=== PATIENT | female | born 1980 ===

== ENCOUNTER 2016-11-23 18:54 | Emergency (ER) | payer OTHER ==
[2016-11-23 18:54] VITALS: BMI 42.5
[2016-11-23 19:05] VITALS: TEMP 97.9
--- NOTE | 2016-11-23 20:39 | C.PDOC ---
Time Seen by Provider: 11/23/16 19:46 Chief Complaint (Nursing): Lower Extremity Problem/Injury Past Medical History Vital Signs: Last Vital Signs Temp 97.9 F 11/23/16 19:01 Pulse 95 H 11/23/16 19:01 Resp 17 11/23/16 19:01 BP 128/82 11/23/16 19:01 Pulse Ox 97 11/23/16 19:01 - Medical History PMH: Anemia, Diabetes, HTN, Hyperthyroidism Denies: HIV, Chronic Kidney Disease Surgical History: Cholecystectomy - [facility] Procedures INJECT/INFUSE ELECTROLYT (07/24/14) INJECT/INFUSE NEC (07/24/14) Family History: States: Unknown Family Hx - Social History Hx Tobacco Use: Yes Hx Alcohol Use: No Hx Substance Use: No - Immunization History Hx Tetanus Toxoid Vaccination: No Hx Influenza Vaccination: No Hx Pneumococcal Vaccination: No ED Course And Treatment O2 Sat by Pulse Oximetry: 97
--- NOTE | 2016-11-23 20:39 | C.PDOC ---
History Of Present Illness 36 yr old female presents to the ER stating last night while walking on the street she sustained a twisting injury. Patient states she woke up this morning and noticed the pain and swelling had worsened. Pain is worse with movement. Patient denies change in sensation, trauma, back pain, leg pain, weakness or numbness. Time Seen by Provider: 11/23/16 19:46 Chief Complaint (Nursing): Lower Extremity Problem/Injury History Per: Patient History/Exam Limitations: no limitations Onset/Duration Of Symptoms: Days (1) Current Symptoms Are (Timing): Still Present Past Medical History Reviewed: Historical Data, Nursing Documentation, Vital Signs Vital Signs: Last Vital Signs Temp 97.9 F 11/23/16 19:01 Pulse 85 11/23/16 20:58 Resp 18 11/23/16 20:58 BP 122/75 11/23/16 20:58 Pulse Ox 99 11/23/16 20:58 - Medical History PMH: Anemia, Diabetes, HTN, Hyperthyroidism Surgical History: Cholecystectomy - [facility] Procedures INJECT/INFUSE ELECTROLYT (07/24/14) INJECT/INFUSE NEC (07/24/14) Family History: States: No Known Family Hx - Social History Hx Tobacco Use: Yes Hx Alcohol Use: No Hx Substance Use: No - Immunization History Hx Tetanus Toxoid Vaccination: No Hx Influenza Vaccination: No Hx Pneumococcal Vaccination: No Review Of Systems Except As Marked, All Systems Reviewed And Found Negative. Musculoskeletal: Positive for: Other ((+) Right ankle pain and swelling ). Negative for: Back Pain, Leg Pain Neurological: Negative for: Weakness, Numbness Physical Exam - Physical Exam Appears: Well, Non-toxic, No Acute Distress Skin: Warm, Dry, No Rash Head: Atraumatic, Normacephalic Eye(s): bilateral: Normal Inspection, EOMI Nose: Normal Oral Mucosa: Moist Chest: Symmetrical Respiratory: No Accessory Muscle Use Extremity: Normal ROM, No Calf Tenderness, No Deformity, Other (Right Ankle - Lateral ankle tenderness and diffuse swelling. ) Pulses: Left Dorsalis Pedis: Normal, Right Dorsalis Pedis: Normal Neurological/Psych: Oriented x3, Normal Speech, Normal Sensation ED Course And Treatment O2 Sat by Pulse Oximetry: 97 - Other Rad X-Ray - Right Ankle X-Ray: Interpreted by Me, Viewed By Me Interpretation: No fracture. No displacement. Progress Note: XRay was done which was negative. Patient is treated with PO Tylenol for the pain and ice pack was given to help with the swelling. Velcro splint was applied by train control electronic technician and crutchs were also given. Patient is advised to follow up with Ortho in 1-2 days for further evaluation. Medical Decision Making Medical Decision Making: PLAN: * X-Ray - Right Ankle * Tylenol PO Disposition - Disposition Referrals: [facility] [Outside] Disposition: HOME/ ROUTINE Disposition Time: 20:36 Condition: STABLE Additional Instructions: Rest, ice and elevate the leg. Follow up with the orthopedics in 1-2 days. Return to ER if symptoms persist or worsen. 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 - Scribe Statement The provider has reviewed the documentation as recorded by the Scribe [place] All medical record entries made by the Alejandroibsantiago were at my direction and personally dictated by me. I have reviewed the chart and agree that the record accurately reflects my personal performance of the history, physical exam, medical decision making, and the department course for this patient. I have also personally directed, reviewed, and agree with the discharge instructions and disposition.
[2016-11-23 20:58] VITALS: BP 122/75; PULSE 85; RESP 18
[2016-11-24 01:35] VITALS: O2SAT 97
--- NOTE | 2016-11-24 09:48 | RAD ---
Right ankle three views History: Trauma. Comparison: None available. Findings: Prominent lateral malleolar soft tissue swelling. No evidence for acute displaced fracture or dislocation. Prominent plantar calcaneal spurring. Ankle mortise maintained. Talar dome intact. Impression: Prominent plantar calcaneal spurring. Prominent lateral malleolar soft tissue swelling. If pain persists, consider MRI.
== END 2016-11-23 20:59 | disposition home or self-care (01) ==
LOC: C.ER 18:54
DX: S93.401A Sprain of unspecified ligament of right ankle, initial encounter (principal); X50.1XXA Overexertion from prolonged static or awkward postures, initial encounter; Y93.01 Activity, walking, marching and hiking; Y92.410 Unspecified street and highway as the place of occurrence of the external cause